=== PATIENT | male | born 1985 | race African-American/Black ===

== ENCOUNTER 2018-11-06 07:20 | Emergency (ER) | payer MEDICAID ==
[~2018-11-06] VITALS: Ht 190.5 cm; Wt 77.1 kg
--- NOTE | 2018-11-06 07:56 | NUR ---
PT RC'D TO ER C/O ANXIETY FEELS PEOPLE WANT TO HURT HIM AWAITING EVALUATION BY ER PROVIDER.
[2018-11-06 08:44] LABS: BASOPHILS % (AUTO) 1.1 % (0.0-2.0); EOSINOPHILS % (AUTO) 1.7 % (0.0-6.0); HEMATOCRIT 40 % (39-51); LYMPHOCYTES # (AUTO) 0.9 /CMM (0.8-4.8); LYMPHOCYTES % (AUTO) 27.1 % (20.0-44.0); MEAN CORPUSCULAR HGB CONC 33 g/dl (31.0-36.0); MEAN CORPUSCULAR VOLUME 92 fL (80-96); MONOCYTES # (AUTO) 0.4 /CMM (0.1-1.30); MONOCYTES % (AUTO) 11.7 % (2.0-12.0); NEUTROPHILS # (AUTO) 1.9 /CMM (1.8-8.9); NEUTROPHILS % (AUTO) 58.4 % (43.0-81.0); PLATELET COUNT (AUTO) 152 /CMM (150-450); RED BLOOD CELL COUNT(AUTO) 4.34 MIL/uL (4.5-6.0); WHITE BLOOD COUNT (AUTO) 3.3 K/uL (4.3-11.0)
[2018-11-06 08:51] LABS: CALCIUM, SERUM 8.6 mg/dL (8.5-10.1); POTASSIUM 4.3 mmol/L (3.5-5.1)
[2018-11-06 08:57] LABS: ALBUMIN 3.8 g/dL (3.4-5.0); BILIRUBIN,DIRECT 0.2 mg/dL (0.0-0.2); BILIRUBIN,TOTAL 0.7 mg/dL (0.2-1.0); TOTAL PROTEIN, SERUM 7.1 g/dL (6.4-8.2)
[2018-11-06] MEDS ORDERED: DIAZEPAM 5 MG TABLET ONE (09:17)
--- NOTE | 2018-11-06 09:21 | NUR ---
PT STABLE FOR DISCHARGE PT. VERBALIZED UNDERSTANDING OF AFTERCARE INSTRUCTIONS.Patient discharged to home in stable condition. Written and verbal after care instructions given. Patient verbalizes understanding of instruction.
[2018-11-06 09:23] VITALS: BP 117/69
[2018-11-06] MEDS ORDERED: DIAZEPAM 10 MG TABLET PO ONE (09:30)
== END 2018-11-06 09:24 | disposition home or self-care (01) ==
LOC: ER 07:22
DX: F41.9 Anxiety disorder, unspecified (principal); F10.10 Alcohol abuse, uncomplicated; Z88.5 Allergy status to narcotic agent; Y90.0 Blood alcohol level of less than 20 mg/100 ml
CPT/HCPCS: 36415; 80048-TC; 80076-TC; 85025-TC; G0480